=== PATIENT | female | born 1950 | race Caucasian/White ===

== ENCOUNTER → 2017-05-27 | Outpatient (CLI) | payer OTHER ==
[2017-05-27 10:45] LABS: BLOOD UREA NITROGEN 16 mg/dl (7-18)
== END | disposition home or self-care (01) ==
LOC: C.LAB 09:16
PROVIDERS: ATTEND Physician Assistant
DX: H90.42 Sensorineural hearing loss, unilateral, left ear, with unrestricted hearing on the contralateral side (principal)

== ENCOUNTER → 2017-05-30 | Outpatient (CLI) | payer OTHER ==
[~2017-05-30] MED LIST: GADAVIST IV PRN
--- NOTE | 2017-05-30 17:36 | DIAGNOSTIC IMAGING REPORT ---
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 COMPARISON STUDY: None FINDINGS: Diffusion images are negative for an acute ischemic event. Signal characteristics of the cerebellar as well as cerebral hemispheres are unremarkable. The ventricular system is midline. The sella and parasellar regions are unremarkable. The internal auditory canals are symmetric. No abnormal postcontrast enhancement. IMPRESSION: Normal MRI of the brain and internal auditory canals. The above report was generated using voice recognition software. It may contain grammatical, syntax or spelling errors. Electronically signed by: Joni Ocampo M.D. 05/30/2017 5:34 PM Dictated Date/Time: 05/30/2017 5:31 PM
== END | disposition home or self-care (01) ==
LOC: C.MRI 16:26
PROVIDERS: ATTEND Physician Assistant
DX: H90.42 Sensorineural hearing loss, unilateral, left ear, with unrestricted hearing on the contralateral side (principal)